=== PATIENT | male | born 1965 | race Caucasian/White ===

== ENCOUNTER 2016-10-30 06:20 | Inpatient (IN) | payer OTHER ==
[2016-10-20 17:17] VITALS: Ht 170.2 cm; Wt 98.9 kg
[2016-10-20 17:18] VITALS: BP_SYST 118; RESP 16; TEMP 98.5
[~2016-10-30] VITALS: Ht 170.2 cm; Wt 98.9 kg
[2016-10-30] VITALS (18 sets, daily range): BP systolic 105–150; RESP 16–28; TEMP 97.7–99.3
[2016-10-30] MEDS ORDERED: CEFAZOLIN 2,000 MG in SODIUM CHLORIDE 0.9% 100 ML IV ONE (06:35)
[2016-10-30] MEDS ORDERED: FAMOTIDINE 20 MG INJ IV ONE (06:40)
[2016-10-30] MEDS ORDERED: ONDANSETRON 4 MG VIAL IV ONE (06:40)
[2016-10-30] MEDS ORDERED: LIDOCAINE 1% BUFFERED 1 ML SYR INTRADERM PRN (06:40)
[2016-10-30] MEDS ORDERED: GLYCOPYRROLATE 0.2 MG/ML VIAL IV ONE ×2 (06:40→11:05)
[2016-10-30] MEDS ORDERED: MIDAZOLAM 2 MG/2 ML INJ IV ONE (06:40)
[2016-10-30] MEDS ORDERED: LACT RINGERS 1,000 ML IV SCH (06:40)
[2016-10-30] MEDS ORDERED: OXYCODONE 5 MG TAB PO PRN (07:15)
[2016-10-30] MEDS ORDERED: MORPHINE 4 MG/ML SYR IV PRN (07:15)
[2016-10-30] MEDS ORDERED: MORPHINE 2 MG/ML SYR IV PRN (07:15)
[2016-10-30] MEDS ORDERED: ONDANSETRON 4 MG VIAL IV PRN (07:15)
[2016-10-30] MEDS ORDERED: ONDANSETRON 4 MG VIAL IV PUSH PRN (09:45)
[2016-10-30] MEDS ORDERED: PANTOPRAZOLE 40 MG TAB PO PRN (09:45)
[2016-10-30] MEDS ORDERED: DILAUDID 1 MG/ML AMP IV PRN (09:45)
[2016-10-30] MEDS: DILAUDID 1 MG/ML AMP IV PRN ×4 (10:20→18:05)
[2016-10-30] MEDS: MEPERIDINE 25 MG/ML IV PRN ×2 (10:21→10:36)
[2016-10-30] MEDS: SODIUM CHLORIDE 0.9% 1,000 ML IV SCH (10:48)
[2016-10-30] MEDS ORDERED: DUONEB INH ONE (10:55)
[2016-10-30] MEDS: DUONEB INH SCH ×2 (10:59→23:00)
[2016-10-30] MEDS ORDERED: LIDOCAINE 2% SYR 5 ML IV ONE (11:05)
[2016-10-30] MEDS ORDERED: PROPOFOL 50ML PER ML IV ONE (11:05)
[2016-10-30] MEDS ORDERED: ROCURONIUM 50 MG VIAL IV ONE (11:05)
[2016-10-30] MEDS ORDERED: NEOSTIGMINE 10 MG/10 ML VIAL IV ONE (11:05)
[2016-10-30] MEDS ORDERED: DILAUDID 1 MG/ML AMP IV ONE (11:05)
[2016-10-30] MEDS ORDERED: SUCCINYLCHOLINE 20 MG/ML VL IV ONE (11:05)
[2016-10-30] MEDS ORDERED: FENTANYL 100 MCG/2 ML AMP IV ONE (11:05)
[2016-10-30] MEDS ORDERED: ACETAMINOPHEN 1,000 MG/100 ML IV ONE (11:05)
[2016-10-30] MEDS: CEFOXITIN 2,000 MG in SODIUM CHLORIDE 0.9% 100 ML IV SCH ×3 (13:14→23:06)
[2016-10-30] MEDS ORDERED: BUPIVACAINE 0.5% PF 30 ML NERVEBLOCK ONE (13:56)
[2016-10-30] MEDS: OXYCODONE 5 MG TAB PO PRN (14:52)
[2016-10-30] MEDS: DOCUSATE SOD 100 MG CAP PO SCH (21:09)
[2016-10-30] MEDS: DIAZEPAM 5 MG TAB PO SCH (21:09)
[2016-10-30] MEDS: Carvedilol 6.25 MG TAB PO SCH (21:09)
[2016-10-31] VITALS (7 sets, daily range): BP systolic 108–144; RESP 16–20; TEMP 98.1–99.4
[2016-10-31] MEDS: DILAUDID 1 MG/ML AMP IV PRN ×5 (01:07→11:21)
[2016-10-31] MEDS: SODIUM CHLORIDE 0.9% 1,000 ML IV SCH (01:12)
[2016-10-31] MEDS: CEFOXITIN 2,000 MG in SODIUM CHLORIDE 0.9% 100 ML IV SCH (05:58)
[2016-10-31] MEDS: DUONEB INH SCH ×3 (06:12→22:25)
[2016-10-31] MEDS ORDERED: SODIUM CHLORIDE 0.9% 1,000 ML IV SCH ×2 (06:50)
[2016-10-31] MEDS ORDERED: **NOTE TO NURSE XX SCH (07:14)
[2016-10-31] MEDS: DIAZEPAM 5 MG TAB PO SCH ×2 (08:41→21:51)
[2016-10-31] MEDS: DOCUSATE SOD 100 MG CAP PO SCH ×2 (08:42→20:32)
[2016-10-31] MEDS: Carvedilol 6.25 MG TAB PO SCH ×2 (08:42→20:32)
[2016-10-31] MEDS: OXYCODONE 5 MG TAB PO PRN ×4 (11:21→21:57)
[2016-10-31] MEDS ORDERED: D5-1/2-NS W/KCL 10MEQ/L 1,000 ML IV SCH (16:55)
[2016-10-31] MEDS: SENNA 8.6 MG TAB PO SCH (17:29)
[2016-11-01] MEDS: OXYCODONE 5 MG TAB PO PRN ×5 (01:45→15:50)
[2016-11-01 04:22] VITALS: BP_SYST 121; RESP 16; TEMP 98.9
[2016-11-01] MEDS: DUONEB INH SCH ×2 (07:25→15:00)
[2016-11-01 07:31] VITALS: BP_SYST 103; RESP 18; TEMP 98.6
[2016-11-01] MEDS: Carvedilol 6.25 MG TAB PO SCH (08:02)
[2016-11-01] MEDS: DOCUSATE SOD 100 MG CAP PO SCH (08:02)
[2016-11-01] MEDS: SENNA 8.6 MG TAB PO SCH (08:02)
[2016-11-01] MEDS: DIAZEPAM 5 MG TAB PO SCH (08:02)
[2016-11-01] MEDS ORDERED: DEXTROSE 5% SALINE 0.45% 1,000 ML IV SCH (08:15)
[2016-11-01 11:39] VITALS: BP_SYST 120; RESP 20; TEMP 98.4
[2016-11-01] MEDS ORDERED: TAMSULOSIN 0.4 MG CAP PO SCH (11:50)
[2016-11-01 15:18] VITALS: BP_SYST 120; RESP 20; TEMP 98.4
== END 2016-11-01 16:00 | disposition home or self-care (01) | DRG 614 ==
LOC: ENRESERVDT → ENRESERVTM → ENPENDDIS 06:20 → SDS 06:20 → 5THE 12:35
PROVIDERS: ADMIT Urology; ATTEND Urology
PROC: 0FQ Hepatobiliary System and Pancreas, Repair (ICD-10-PCS; 2016-10-30)
PROC: 8E0W4CZ Robotic Assisted Procedure of Trunk Region, Percutaneous Endoscopic Approach (ICD-10-PCS; 2016-10-30)
PROC: 0GT34ZZ Resection of Right Adrenal Gland, Percutaneous Endoscopic Approach (ICD-10-PCS; principal; 2016-10-30 07:24)
DX: D49.7 Neoplasm of unspecified behavior of endocrine glands and other parts of nervous system (principal); K91.3 Postprocedural intestinal obstruction; S36.113A Laceration of liver, unspecified degree, initial encounter; I10 Essential (primary) hypertension; M19.90 Unspecified osteoarthritis, unspecified site; J45.909 Unspecified asthma, uncomplicated; K21.9 Gastro-esophageal reflux disease without esophagitis; Z72.0 Tobacco use
CPT/HCPCS: 80048; 85025; 86850; 86900; 86901; 88307; 94640; 94799